=== PATIENT | female | born 1945 | race Caucasian/White ===

== ENCOUNTER → 2021-07-24 10:23 | Outpatient (REF) | payer OTHER, SELFPAY | LOC: ANHLAB 10:23 | PROVIDERS: PCP Internal Medicine; Visit Provider Nurse Practitioner | DX: C44.722 Squamous cell carcinoma of skin of right lower limb, including hip (principal) | CPT/HCPCS: 88305; 88331 ==

== ENCOUNTER 2022-10-08 14:38 | Outpatient (NON) | payer OTHER, SELFPAY | END 2022-10-08 14:39 | disposition home or self-care (01) | LOC: ANHLAB 14:39 | PROVIDERS: PCP Internal Medicine; Visit Provider Nurse Practitioner | DX: C44.92 Squamous cell carcinoma of skin, unspecified (principal) | CPT/HCPCS: 88305; 88331 ==